=== PATIENT | female | born 1995 | race Caucasian/White ===

== ENCOUNTER 2019-06-29 02:26 | Emergency (ER) | payer MEDICAID ==
[~2019-06-29] VITALS: Ht 162.6 cm; Wt 72.6 kg
[2019-06-29 02:42] VITALS: Ht 162.6 cm; Wt 72.6 kg
[2019-06-29 06:17] VITALS: BP 105/60
== END 2019-06-29 06:17 | disposition home or self-care (01) ==
LOC: ED 02:26
DX: S53.402A Unspecified sprain of left elbow, initial encounter (principal); Y04.0XXA Assault by unarmed brawl or fight, initial encounter; Y93.89 Activity, other specified; Y92.89 Other specified places as the place of occurrence of the external cause; Y99.8 Other external cause status